=== PATIENT | male | born 1965 | race Caucasian/White ===

== ENCOUNTER 2018-05-07 16:19 | Emergency (ER) | payer MEDICAID ==
[~2018-05-07] VITALS: Ht 182.9 cm; Wt 85.9 kg
[2018-05-07 16:22] VITALS: Ht 182.9 cm; Wt 85.9 kg
[2018-05-07] MEDS ORDERED: DOLOPHINE HCL10 MG PO (16:24)
[2018-05-07] MEDS ORDERED: ZANAFLEX4 MG PO (16:25)
[2018-05-07 16:45] LABS: BASOPHILS 0.2 % (0-2); EOSINOPHILS 1.4 % (0-7); HEMATOCRIT 44.2 % (42.0-54.0); HEMOGLOBIN 15.4 g/dL (13.5-17.5); IMMATURE GRANULOCYTES 0.1 % (0-5); MCH 30.8 pg (26.0-34.0); MCHC 34.8 g/dL (31.0-37.0); MCV 88.4 fL (80.0-100.0); MEAN PLATELET VOLUME 9.8 fL (7.4-10.4); MONOCYTES 6.3 % (2-11); PLATELET COUNT 246 10x3/uL (130-400); RDW 13.7 % (11.5-14.5); WBC 8.4 10x3/uL (4.8-10.8)
[2018-05-07 16:57] LABS: ALBUMIN 3.9 g/dL (3.4-5.0); ALKALINE PHOSPHATASE 95 U/L (46-116); ALT (SGPT) 30 U/L (10-68); BILIRUBIN - TOTAL 0.85 mg/dL (0.2-1.3); CALC OSMOLALITY 270 mosm/kg (275-300); CALCIUM 9.1 mg/dL (8.5-10.1); CARBON DIOXIDE 28.7 mmol/L (21.0-32.0); CHLORIDE - SERUM 100 mmol/L (98-107); GLUCOSE 88 mg/dL (74-106); POTASSIUM - SERUM 4.2 mmol/L (3.5-5.1); SODIUM 136 mmol/L (136-145); UREA NITROGEN 12 mg/dL (7-18); eGFR NON AFRICAN AMERICAN 84 mL/min (90-120)
[2018-05-07 17:01] LABS: AMYLASE - SERUM 43 U/L (25-115); LIPASE 136 U/L (73-393); TROPONIN-I < 0.017 ng/mL (0.000-0.060)
[2018-05-07 17:19] LABS: APPEARANCE CLEAR (CLEAR); BILIRUBIN NEGATIVE (NEGATIVE); COLOR YELLOW (YELLOW); GLUCOSE NEGATIVE (NEGATIVE); KETONE SMALL mg/dL (NEGATIVE); NITRITE NEGATIVE (NEGATIVE); PROTEIN NEGATIVE (NEGATIVE); SPECIFIC GRAVITY 1.015 (1.005-1.020); UROBILINOGEN NORMAL (NORMAL)
[2018-05-07] MEDS ORDERED: NORCO 7.5/325 T1 TA1 PO (18:02)
[2018-05-07] MEDS ORDERED: FLAGYL500 MG PO (18:02)
[2018-05-07 18:28] VITALS: BP 160/85
== END 2018-05-07 18:30 | disposition home or self-care (01) ==
LOC: D.ER 16:19
PROVIDERS: Emergency Medicine
DX: R10.32 Left lower quadrant pain (principal); R10.12 Left upper quadrant pain; R11.10 Vomiting, unspecified; I10 Essential (primary) hypertension

== ENCOUNTER 2018-05-09 05:35 | Observation (INO) | payer MEDICARE ==
[~2018-05-09] VITALS: Ht 182.9 cm; Wt 85.9 kg
--- NOTE | ~2018-05-09 | MORECARE ---
CASE MANAGEMENT DISCHARGE SUMMARY PATIENT: DAMIEN FERNÁNDEZ UNIT: [id number] ADM DATE: 05/09/18 AGE: 52 : 69 SEX: M ROOM/BED: D.2224 AUTHOR: TON,DOC PHYSICIAN: REFERRING PHYSICIAN: BRYN CHO MD DATE OF SERVICE: 05/10/18 Discharge Plan Patient Name: DAMIEN FERNÁNDEZ Facility: [facility]:[place] : 1965 Planned Disposition: Home Anticipated Discharge Date: Discharge Date: Expected LOS: Initial Reviewer: [id number] Initial Review Date: 05/10/2018 Generated: 05/10/18 4:29 pm Comments DCP- Discharge Planning Updated by [id number]: Mary Berger on 05/10/18 2:[address] Patient Name: DAMIEN FERNÁNDEZ Admission Status: ER Accout number: [id number] Admission Date: 05-09-2018 : 1965 Admission Diagnosis: Attending: BRYN CHO Current LOS: 1 Anticipated DC Date: Planned Disposition: Home Primary Insurance: MEDICARE A & B Discharge Planning Comments: CM met with patient to discuss discharge planning, he is alone in the room. States he lives with his and 3 boys (12-19yo). States he is independent with all ADL's and IADL's. States they have just moved her 2 weeks ago from [place] and he does not have a PCP yet. States he does not have any DME or use any outside services in the home. Declines need for DME or home health services. No needs identified. States his will take him home on discharge. CM will continue to follow and assist with discharge planning/needs. National Secretary: Mary Berger DCPIA - Discharge Planning Initial Assessment Updated by [id number]: Mary Berger on 05/10/18 3:26 pm * Is the patient Alert and Oriented? Yes * How many steps to enter\exit or inside your home? 2/0 * PCP Dr. Jeff Cisneros in [place] * Pharmacy [facility] in [facility] * Preadmission Environment Home with Family * ADLs Independent * Equipment None * List name and contact numbers for known caregivers / representatives who currently or will assist patient after discharge: Sabrina whitfield - [phone] * Verbal permission to speak to the caregivers and representatives has been obtained from the patient. Yes * Community resources currently utilized None * Additional services required to return to the preadmission environment? No * Can the patient safely return to the preadmission environment? Yes * Has this patient been hospitalized within the prior 30 days at any hospital? No Patient Name: DAMIEN FERNÁNDEZ Page [phone] at 1530 All edits/amendments must be made on the electronic document DICTATION DATE: 05/10/181528 MANAGER STRATEGY & ACCOUNT: ANIBAL 05/10/181528 RPT#: [id number] DC DATE: STATUS: ADM IN [facility] [address] [place] [address] END OF REPORT
--- NOTE | ~2018-05-09 | MORECARE ---
CASE MANAGEMENT DISCHARGE SUMMARY PATIENT: DAMIEN FERNÁNDEZ UNIT: [id number] ADM DATE: 05/09/18 AGE: 52 : 69 SEX: M ROOM/BED: D.2224 AUTHOR: TONDOC PHYSICIAN: REFERRING PHYSICIAN: BRYN CHO MD DATE OF SERVICE: 05/13/18 Discharge Plan Patient Name: DAMIEN FERNÁNDEZ Facility: [facility]:[place] : 1965 Planned Disposition: Home Anticipated Discharge Date: Discharge Date: 05/11/2018 Expected LOS: 0 Initial Reviewer: [email or web address] Initial Review Date: 05/10/2018 Generated: 05/13/18 5:20 pm Comments DCP- Discharge Planning Updated by [id number]: Mary Berger on 05/11/18 1:[address] Patient Name: DAMIEN FERNÁNDEZ Encounter No: [id number] : 1965 Primary Insurance: MEDICARE A & B Anticipated DC Date: Planned Disposition: Home External Planned Provider: : DCP follow-up note: Patient and family in agreement with discharge plan. His is here to take him home. No changes to plan. Case management will follow and assist as needed. Mary Berger DCP- Discharge Planning Updated by [id number]: Mary Berger on 05/10/18 2:[address] Patient Name: DAMIEN FERNÁNDEZ Admission Status: ER Accout number: [id number] Admission Date: 05-09-2018 : 1965 Admission Diagnosis: Attending: BRYN CHO Current LOS: 1 Anticipated DC Date: Planned Disposition: Home Primary Insurance: MEDICARE A & B Discharge Planning Comments: CM met with patient to discuss discharge planning, he is alone in the room. States he lives with his and 3 boys (12-19yo). States he is independent with all ADL's and IADL's. States they have just moved her 2 weeks ago from [place] and he does not have a PCP yet. States he does not have any DME or use any outside services in the home. Declines need for DME or home health services. No needs identified. States his will take him home on discharge. CM will continue to follow and assist with discharge planning/needs. Shredding Machine Operator: Mary Berger DCPIA - Discharge Planning Initial Assessment Updated by [id number]: Mary Berger on 05/10/18 3:26 pm * Is the patient Alert and Oriented? Yes * How many steps to enter\exit or inside your home? 2/0 * PCP Dr. Jeff Cisneros in [place] * Pharmacy [facility] in [facility] * Preadmission Environment Home with Family * ADLs Independent * Equipment None * List name and contact numbers for known caregivers / representatives who currently or will assist patient after discharge: Sabrina Venegas [facility] - [phone] * Verbal permission to speak to the caregivers and representatives has been obtained from the patient. Yes * Community resources currently utilized None * Additional services required to return to the preadmission environment? No * Can the patient safely return to the preadmission environment? Yes * Has this patient been hospitalized within the prior 30 days at any hospital? No Coverage Notice Reviewer: [id number] - Mary Berger Notice Issued Date-Time: 05/11/2018 8:00 Notice Type: Medicare Outpatient Observation Notice Notice Delivered To: Patient Relationship to Patient: Self Group Supervisor Yard Name: Delivery Method: HAND - Hand Delivered Cydney Days: Prior Verbal Notification: Recipient Understood Notice: Yes Recipient Signature: Yes Med Rec Note Co-signed by Attending: Coverage Notice Comment: IMM EXPLAINED, SIGNED, COPY GIVEN, ORIGNIAL PLACED IN MR. HE WAS LISTED YESTERDAY MEDICAID/NOT MEDICARE. MEDICAID IS HIS SECONDARY Last DP export: 05/11/18 1:41 Patient Name: DAMIEN FERNÁNDEZ Page [phone] at 1621 All edits/amendments must be made on the electronic document DICTATION DATE: 05/13/181619 IT BUSINESS ANALYST: ANIBAL 05/13/181619 RPT#: [id number] DC DATE:05/11/18 STATUS: DIS IN [facility] [address] [place] [address] END OF REPORT
--- NOTE | ~2018-05-09 | MORECARE ---
CASE MANAGEMENT DISCHARGE SUMMARY PATIENT: DAMIEN FERNÁNDEZ UNIT: [id number] ADM DATE: 05/09/18 AGE: 52 : 69 SEX: M ROOM/BED: D.2224 AUTHOR: JAMIE CAMILO PHYSICIAN: REFERRING PHYSICIAN: BRYN CHO MD DATE OF SERVICE: 05/11/18 Discharge Plan Patient Name: DAMIEN FERNÁNDEZ Facility: [facility]:[place] : 1965 Planned Disposition: Home Anticipated Discharge Date: Discharge Date: Expected LOS: Initial Reviewer: [id number] Initial Review Date: 05/10/2018 Generated: 05/11/18 3:40 pm Comments DCP- Discharge Planning Updated by [id number]: Mary Berger on 05/11/18 1:[address] Patient Name: DAMIEN FERNÁNDEZ Encounter No: [id number] : 1965 Primary Insurance: MEDICARE A & B Anticipated DC Date: Planned Disposition: Home External Planned Provider: : DCP follow-up note: Patient and family in agreement with discharge plan. His is here to take him home. No changes to plan. Case management will follow and assist as needed. Mary Berger DCP- Discharge Planning Updated by [email or web address]: Mary Berger on 05/10/18 2:[address] Patient Name: DAMIEN FERNÁNDEZ Admission Status: ER Accout number: [id number] Admission Date: 05-09-2018 : 1965 Admission Diagnosis: Attending: BRYN CHO Current LOS: 1 Anticipated DC Date: Planned Disposition: Home Primary Insurance: MEDICARE A & B Discharge Planning Comments: CM met with patient to discuss discharge planning, he is alone in the room. States he lives with his and 3 boys (12-19yo). States he is independent with all ADL's and IADL's. States they have just moved her 2 weeks ago from [place] and he does not have a PCP yet. States he does not have any DME or use any outside services in the home. Declines need for DME or home health services. No needs identified. States his will take him home on discharge. CM will continue to follow and assist with discharge planning/needs. Fire Services Plumber: Mary Berger DCPIA - Discharge Planning Initial Assessment Updated by [id number]: Mary Berger on 05/10/18 3:26 pm * Is the patient Alert and Oriented? Yes * How many steps to enter\exit or inside your home? 2/0 * PCP Dr. Jeff Cisneros in [place] * Pharmacy [facility] in [facility] * Preadmission Environment Home with Family * ADLs Independent * Equipment None * List name and contact numbers for known caregivers / representatives who currently or will assist patient after discharge: Sabrina whitfield - [phone] * Verbal permission to speak to the caregivers and representatives has been obtained from the patient. Yes * Community resources currently utilized None * Additional services required to return to the preadmission environment? No * Can the patient safely return to the preadmission environment? Yes * Has this patient been hospitalized within the prior 30 days at any hospital? No Coverage Notice Reviewer: [id number] - Mary Berger Notice Issued Date-Time: 05/11/2018 8:00 Notice Type: Medicare Outpatient Observation Notice Notice Delivered To: Patient Relationship to Patient: Self Door Hanger Name: Delivery Method: HAND - Hand Delivered Cydney Days: Prior Verbal Notification: Recipient Understood Notice: Yes Recipient Signature: Yes Med Rec Note Co-signed by Attending: Coverage Notice Comment: IMM EXPLAINED, SIGNED, COPY GIVEN, ORIGNIAL PLACED IN MR. HE WAS LISTED YESTERDAY MEDICAID/NOT MEDICARE. MEDICAID IS HIS SECONDARY Last DP export: 05/10/18 2:30 Patient Name: DAMIEN FERNÁNDEZ Page [phone] at 1441 All edits/amendments must be made on the electronic document DICTATION DATE: 05/11/181439 AIR BRUSH ARTIST: ANIBAL 05/11/18 144 RPT#: [id number] DC DATE: STATUS: ADM IN [facility] [address] [place] [address] END OF REPORT
[~2018-05-09 05:35] MED LIST: DOLOPHINE HCL10 MG PO; FLAGYL500 MG PO; NORCO 7.5/325 T1 TA1 PO; ZANAFLEX4 MG PO
[2018-05-09 06:18] LABS: BASOPHILS 0.3 % (0-2); EOSINOPHILS 2.2 % (0-7); HEMATOCRIT 39.3 % (42.0-54.0); HEMOGLOBIN 13.2 g/dL (13.5-17.5); IMMATURE GRANULOCYTES 0.3 % (0-5); LYMPHOCYTES 27.3 % (15-50); MCH 29.8 pg (26.0-34.0); MCHC 33.6 g/dL (31.0-37.0); MCV 88.7 fL (80.0-100.0); MEAN PLATELET VOLUME 9.9 fL (7.4-10.4); MONOCYTES 8.5 % (2-11); NEUTROPHILS 61.4 % (40-80); PLATELET COUNT 220 10x3/uL (130-400); RBC 4.43 10x6/uL (4.20-6.10); RDW 13.8 % (11.5-14.5); WBC 8.7 10x3/uL (4.8-10.8)
[2018-05-09 06:32] LABS: ALBUMIN 3.4 g/dL (3.4-5.0); ALKALINE PHOSPHATASE 82 U/L (46-116); ALT (SGPT) 23 U/L (10-68); BILIRUBIN - TOTAL 0.38 mg/dL (0.2-1.3); CALC OSMOLALITY 268 mosm/kg (275-300); CALCIUM 8.1 mg/dL (8.5-10.1); CARBON DIOXIDE 26.8 mmol/L (21.0-32.0); CHLORIDE - SERUM 102 mmol/L (98-107); GLUCOSE 71 mg/dL (74-106); PROTEIN - SERUM 7.1 g/dL (6.4-8.2); SODIUM 136 mmol/L (136-145); UREA NITROGEN 9 mg/dL (7-18); eGFR NON AFRICAN AMERICAN 84 mL/min (90-120)
[2018-05-09 06:43] LABS: AMYLASE - SERUM 35 U/L (25-115); CKMB 1.7 U/L (0.0-3.6); CREATINE KINASE 154 UL (21-232); LIPASE 138 U/L (73-393); TROPONIN-I < 0.017 ng/mL (0.000-0.060)
[2018-05-09 08:28] LABS: APPEARANCE CLEAR (CLEAR); COLOR YELLOW (YELLOW)
[2018-05-09 08:29] LABS: BILIRUBIN NEGATIVE (NEGATIVE); GLUCOSE NEGATIVE (NEGATIVE); KETONE NEGATIVE (NEGATIVE); NITRITE NEGATIVE (NEGATIVE); PROTEIN NEGATIVE (NEGATIVE); UROBILINOGEN NORMAL (NORMAL)
[2018-05-09 12:00] VITALS: BP 157/81; BMI 25.7
[2018-05-09 18:41] VITALS: BP 165/88
[2018-05-09 20:00] VITALS: BP 146/86
[2018-05-10 04:49] LABS: BASOPHILS 0.3 % (0-2); EOSINOPHILS 2.8 % (0-7); HEMATOCRIT 39.1 % (42.0-54.0); HEMOGLOBIN 13.2 g/dL (13.5-17.5); LYMPHOCYTES 30.3 % (15-50); MCH 30.2 pg (26.0-34.0); MCHC 33.8 g/dL (31.0-37.0); MCV 89.5 fL (80.0-100.0); MEAN PLATELET VOLUME 10.4 fL (7.4-10.4); NEUTROPHILS 55.6 % (40-80); PLATELET COUNT 215 10x3/uL (130-400); RBC 4.37 10x6/uL (4.20-6.10); RDW 13.7 % (11.5-14.5)
[2018-05-10 05:10] LABS: CALC OSMOLALITY 274 mosm/kg (275-300); CALCIUM 8.2 mg/dL (8.5-10.1); CARBON DIOXIDE 29.8 mmol/L (21.0-32.0); CHLORIDE - SERUM 105 mmol/L (98-107); CREATININE - SERUM 0.9 mg/dL (0.6-1.3); GLUCOSE 85 mg/dL (74-106); POTASSIUM - SERUM 3.9 mmol/L (3.5-5.1); SODIUM 139 mmol/L (136-145); eGFR NON AFRICAN AMERICAN > 90 mL/min (90-120)
[2018-05-10 05:24] LABS: UREA NITROGEN 6 mg/dL (7-18)
[2018-05-10 07:21] VITALS: BP 139/79
[2018-05-10 08:43] VITALS: BP 152/86
[2018-05-10 10:07] VITALS: Ht 182.9 cm; Wt 85.9 kg
[2018-05-10 17:16] VITALS: BP 191/101
[2018-05-10 22:17] VITALS: BP 173/98
[2018-05-11 01:08] VITALS: BP 169/95
[2018-05-11 05:08] VITALS: BP 146/84
[2018-05-11 06:29] LABS: BASOPHILS 0.3 % (0-2); EOSINOPHILS 2.8 % (0-7); HEMATOCRIT 39.4 % (42.0-54.0); HEMOGLOBIN 13.2 g/dL (13.5-17.5); IMMATURE GRANULOCYTES 0.2 % (0-5); LYMPHOCYTES 28.3 % (15-50); MCH 30.3 pg (26.0-34.0); MCHC 33.5 g/dL (31.0-37.0); MCV 90.6 fL (80.0-100.0); MEAN PLATELET VOLUME 10.5 fL (7.4-10.4); MONOCYTES 9.4 % (2-11); PLATELET COUNT 239 10x3/uL (130-400); RBC 4.35 10x6/uL (4.20-6.10); RDW 13.7 % (11.5-14.5); WBC 6.4 10x3/uL (4.8-10.8)
[2018-05-11 06:37] LABS: CALC OSMOLALITY 274 mosm/kg (275-300); CALCIUM 8.4 mg/dL (8.5-10.1); CARBON DIOXIDE 31.9 mmol/L (21.0-32.0); CHLORIDE - SERUM 104 mmol/L (98-107); CREATININE - SERUM 0.9 mg/dL (0.6-1.3); GLUCOSE 87 mg/dL (74-106); SODIUM 140 mmol/L (136-145); eGFR NON AFRICAN AMERICAN > 90 mL/min (90-120)
[2018-05-11 06:44] LABS: UREA NITROGEN 4 mg/dL (7-18)
[2018-05-11 08:27] VITALS: BP 146/89
== END 2018-05-11 15:02 | disposition home or self-care (01) ==
LOC: D.ER 05:35 → D.EDHOLD 08:59 → D.MS 08:59 → OBSVTIME 09:00 → D.MS 09:26
PROVIDERS: Family Medicine; Internal Medicine Nephrology
DX: K44.9 Diaphragmatic hernia without obstruction or gangrene (principal); K40.90 Unilateral inguinal hernia, without obstruction or gangrene, not specified as recurrent; I10 Essential (primary) hypertension; K21.9 Gastro-esophageal reflux disease without esophagitis

== ENCOUNTER 2019-12-09 12:13 | Inpatient (IN) | payer MEDICARE ==
[~2019-12-09] VITALS: Ht 182.9 cm; Wt 88.7 kg
[2019-12-09] VITALS (9 sets, daily range): BP systolic 112–143; BP diastolic 62–94; Ht 182.9 cm; Wt 88.7 kg
--- NOTE | ~2019-12-09 | EC ---
PATIENT:DAMIEN FERNÁNDEZ DATE OF SERVICE: 12/09/19 SEX: M MEDICAL RECORD: [id number] DATE OF : [birth year] LOCATION[facility] AGE OF PATIENT: 54 ADMISSION DATE: 12/09/19 REFERRING PHYSICIAN: INTERPRETING PHYSICIAN: JAY ERNST MD ECHOCARDIOGRAM REPORT ECHO CHARGES 4 ECHO COMPLETE Date: 12/10/19 CLINICAL DIAGNOSIS: PERICARDIAL EFFUSION ECHOCARDIOGRAPHIC MEASUREMENTS (adult normal given) AC root (d.<3.7cm) 3.3 cm LV Septum d (<1.2 cm> 1.0 cm Valve Excursion 2.2 cm LV Septum (systole) 1.5 cm Left Atria (s.<4.0cm> 4.0 cm LVPW d(<1.2cm) 1.1 cm RV (d.<2.3cm) 2.6 cm LVPW (sytole) 1.7 cm LV diastole(<5.6CM) 5.0 cm MV E-F(>70mm/sec) cm LV systole 3.0 cm LVOT Diameter 2.4 cm MV exc.(>10mm) cm Est.ejection fraction (50-75%) % DOPPLER: LVIT cm/sec A 113 cm/sec E 53.0 cm/sec LA cm/sec RVSP 31.2 mmHg LVOT 112 cm/sec AOP1/2T m/s Asc. Ao 166 cm/sec RVOT 74.0 cm/sec RA cm/sec PA 108 cm/sec AV Gradient Peak 11.0 mmHg AV Mean 5.7 mmHg AV Area 2.7 cm MV Gradient Peak 6.2 mmHg MV Mean 2.4 mmHg MV Area cm COMMENTS: Coil Shaper: Jannet RUSTOE Window Dresser: Jay Ernst TAPE# PACS Pericardial Effusion Y DATE OF SERVICE: 12/10/2019 PROCEDURE: Transthoracic echocardiogram. FINDINGS: 1. Left ventricle shows hyperdynamic function, ejection fraction of 65% to 70%. There is mild left ventricular hypertrophy. There is diastolic dysfunction. 2. Left atrium is mildly dilated. 3. Aortic valve: Normal structure and function, trileaflet structure. 4. The mitral valve has mild mitral regurgitation with normal structure and ECHOCARDIOGRAM REPORT [id number] DAMIEN FERNÁNDEZ function. 5. Tricuspid valve is normal in structure and function with mild tricuspid regurgitation. RVSP appears to be normal. 6. Right ventricle is normal size, shape, structure, and function. 7. Right atrium is normal size, shape, structure, and function. 8. Pulmonic valve is normal. TRANSINT:[id number] Voice Confirmation ID: [id number] DOCUMENT ID: [id number] JAY ERNST MD CC: [id number] DICTATION DATE: 12/11/19726 MOVIE PROJECTIONIST: 12/11/19 175 DIS IN 12/10/19 [facility] [address] [place] [address]
[2019-12-09 12:52] LABS: BASOPHILS 0.3 % (0-2); EOSINOPHILS 0.8 % (0-7); HEMATOCRIT 29.6 % (42.0-54.0); HEMOGLOBIN 9.3 g/dL (13.5-17.5); IMMATURE GRANULOCYTES 0.5 % (0-5); LYMPHOCYTES 16.6 % (15-50); MCH 28.5 pg (26.0-34.0); MCHC 31.4 g/dL (31.0-37.0); MCV 90.8 fL (80.0-100.0); MEAN PLATELET VOLUME 9.5 fL (7.4-10.4); MONOCYTES 5.5 % (2-11); NEUTROPHILS 76.3 % (40-80); PLATELET COUNT 250 10x3/uL (130-400); RBC 3.26 10x6/uL (4.20-6.10); RDW 16.5 % (11.5-14.5); WBC 11.1 10x3/uL (4.8-10.8)
[2019-12-09 13:05] LABS: APTT 25.2 SECONDS (22.8-39.4); INR 1.01 (0.85-1.17); PROTIME 13.3 SECONDS (11.6-15.0)
[2019-12-09 13:07] LABS: CALC OSMOLALITY 285 mosm/kg (275-300); CALCIUM 7.4 mg/dL (8.5-10.1); CARBON DIOXIDE 25.9 mmol/L (21.0-32.0); CHLORIDE - SERUM 107 mmol/L (98-107); POTASSIUM - SERUM 3.7 mmol/L (3.5-5.1); SODIUM 141 mmol/L (136-145); UREA NITROGEN 21 mg/dL (7-18); eGFR NON AFRICAN AMERICAN 83 mL/min (90-120)
[2019-12-09 13:12] LABS: ALBUMIN 2.7 g/dL (3.4-5.0); ALKALINE PHOSPHATASE 84 U/L (30-120); ALT (SGPT) 20 U/L (10-68); BILIRUBIN - TOTAL 0.47 mg/dL (0.2-1.3); PRO BNP 44 pg/mL (0-125); PROTEIN - SERUM 5.8 g/dL (6.4-8.2); TROPONIN-I < 0.017 ng/mL (0.000-0.060)
[2019-12-09 13:14] LABS: GLUCOSE 139 mg/dL (74-106)
[2019-12-09 14:18] LABS: BACTERIA FEW /hpf (NEGATIVE); BILIRUBIN NEGATIVE (NEGATIVE); GLUCOSE NEGATIVE (NEGATIVE); KETONE SMALL mg/dL (NEGATIVE); NITRITE NEGATIVE (NEGATIVE); RED CELLS - URINE 0-5 /hpf (0-5); UROBILINOGEN NORMAL (NORMAL); WHITE CELLS - URINE 0-5 /hpf (NEGATIVE)
[2019-12-09] MEDS ORDERED: LISINOPRIL40 MG PO (16:02)
--- NOTE | 2019-12-09 16:02 | NUR ---
1530 PT REPORT RECIEVED FROM THE ED,.. PT ARRIVED IN ICU VIA BED .. ADMISSION ASSESMENT DONE SEE FLOW SHEET FOR FINDIONGS.. ICE BAG IS PLACED ON PATIENTS RIGHT FOOT FOR SWELLING AND C/O PAIN... PT STATES THAT HE HAS A HISTORY OF BACK PAIN.. PT ARRIVED WITH A CELL PHONE ..
[2019-12-09 17:06] LABS: HEMATOCRIT 23.1 % (42.0-54.0); HEMOGLOBIN 7.2 g/dL (13.5-17.5)
--- NOTE | 2019-12-09 18:34 | NUR ---
1600 SPOKE WITH PATIENTS SON AND GIRL UPDATE GIVEN PER PATIENT OK AND PASS CODE GIVEN... 1630 PATIENT SUDDENLY STARTED YELLING OUT ITS HAPPENEING AGAIN and STARTED HAVING A SEIZURE THAT LASTED 30-45 SECONDS WHEREBY HE BECAME APNIC AND BRADYCARDIC A CODE BLUE WAS CALLED AND WITHOUT LIFESAVING MEDS GIVEN PATIENT RALLIED AND BECAME POST DICTAL AFTER BECOMING BELIGERANT FIRST.. DR ALMONTE CALLED...
--- NOTE | 2019-12-09 18:55 | NUR ---
164 [address] WILLIAMSON FOR POSSIBLE CARDIAC INVOLVEMENT IN SEIZURE ACTIVITY.. KEPRA WAS ORDERED BY DR LIU IN THE CODE 1500MG AND 2 MG OF ATIVAN THIS WAS INITIATED..2ND SEIZURE LIKE ACTIVITY WITH SAME SYMPTOMS 1700 DR WILLIAMSON HERE AND SPOKE WITH PATIENT.. DISCOVERY IN INTERVIEW WITH THAT PATIENT WAS DCd FROM [facility] YESTERDAY AND DRANK 6 BEERS LAST NITE AND HE HAD BEEN ON METHADONE FOR 8 YEARS AND WEANED HIMSELF OFF AND TOOK THE LAST DOSE 6 WEEKS AGO... HE ALSO HAS WEANED HIMSELF OFF OF MOST OF HIS OTHER HOME MEDS.. 1730 DR ALMONTE CALLED BACK AND ORDERS RECIEVED FOR UDS BANANA BAG LIBRIUM SCHEDULED AND HAND H Q4.. DR DELGADO CALLED AND INFORMED OF PATIENTS ISSUES.. PRBC ORDERED.. 1800 PRBC INFUSING.. PT IS SLEEPING AND EASILY ROUSED.. 1830 CLEAN LINENS TO BED KEPRA THRU INFUSING.. PT INCONTINENT OF URINE DURING SEIZURES.. PRBC CONTINUE TO INFUSE
--- NOTE | 2019-12-09 21:05 | NUR ---
1914-ASSESSMENT COMPLETED. LAYING IN BED WITH EYES CLOSED, EASILY WAKES. A/O X 4. REQUESTING ICE CHIPS. BREATHING ROOM AIR. INDEPENDENT WITH REPOSITIONING. 1945- FIRST UNIT PRBC COMPLETED. 1956- SECOND UNIT OF PRBC STARTED. 2099- EYES CLOSED, EASILY WAKES. DENIES ANY NEEDS. INDEPENDENT WITH REPOSITIONING.
[2019-12-10] VITALS (13 sets, daily range): BP systolic 97–137; BP diastolic 57–107
--- NOTE | 2019-12-10 01:54 | NUR ---
2229- PATIENT C/O SEVERE CHRONIC BACK PAIN AND RIGHT FOOT PAIN. INFORMED PATIENT THAT THERE WASN'T ANY PAIN MEDICINE ORDERS BUT THIS NURSE CAN CALL MD. PATIENT STATED "YOU BETTER GET ME SOMETHING FOR PAIN OR YOU'RE NOT GOING TO LIKE ME VERY MUCH." CALLED AND SPOKE WITH ROMEO CORTES APRN WITH DR. EASTMAN. NEW ORDERS RC'D. 9- DR. DELGADO CALLED TO GET UPDATED ON PATIENT. UPDATE GIVEN. 0045- 3 UNITS AND PRBC COMPLETELY DONE. 0146- DR. EASTMAN CALLED FOR UPDATE ON PATIENT. UPDATE GIVEN. 0200- LAB HERE TO GET LAB FOR H&H, PATIENT STARTED CUSSING AT GUT CLEANER.
[2019-12-10 01:55] LABS: HEMATOCRIT 28.6 % (42.0-54.0); HEMOGLOBIN 9.1 g/dL (13.5-17.5)
--- NOTE | 2019-12-10 02:43 | NUR ---
COLLECTED CLEAN CATCH URINE FOR LAB. PATIENT HAD A LARGE, BRIGHT RED BM. CALLED ANSWERING SERVICE FOR DR. DELGADO TO BE PAGED AT THIS TIME CONCERNING BLEEDING AND H&H
[2019-12-10 03:09] LABS: UDS - AMPHET NEGATIVE QUAL (NEGATIVE); UDS - BARB NEGATIVE QUAL (NEGATIVE); UDS - BENZO NEGATIVE QUAL (NEGATIVE); UDS - COCAINE NEGATIVE QUAL (NEGATIVE); UDS - OPIATE POSITIVE QUAL (NEGATIVE); UDS - PCP NEGATIVE QUAL (NEGATIVE); UDS - THC NEGATIVE QUAL (NEGATIVE)
--- NOTE | 2019-12-10 05:00 | NUR ---
EYES CLOSED, EASILY WAKES TO VOICE. NO OTHER BLEEDING NOTED.
--- NOTE | 2019-12-10 06:15 | NUR ---
DR. EASTMAN CALLED, UPDATE GIVEN.
[2019-12-10 06:28] LABS: HEMATOCRIT 28.9 % (42.0-54.0); HEMOGLOBIN 9.4 g/dL (13.5-17.5); LYMPHOCYTES 24.2 % (15-50); MCHC 32.5 g/dL (31.0-37.0); MCV 89.2 fL (80.0-100.0); MEAN PLATELET VOLUME 9.8 fL (7.4-10.4); NEUTROPHILS 68.4 % (40-80); PLATELET COUNT 181 10x3/uL (130-400); RBC 3.24 10x6/uL (4.20-6.10); RDW 15.6 % (11.5-14.5); WBC 10.9 10x3/uL (4.8-10.8)
[2019-12-10 06:39] LABS: ALBUMIN 2.3 g/dL (3.4-5.0); ALKALINE PHOSPHATASE 57 U/L (30-120); ALT (SGPT) 17 U/L (10-68); CALCIUM 7.1 mg/dL (8.5-10.1); CARBON DIOXIDE 26.3 mmol/L (21.0-32.0); CHLORIDE - SERUM 110 mmol/L (98-107); CREATININE - SERUM 0.8 mg/dL (0.6-1.3); MAGNESIUM - SERUM 2.5 mg/dL (1.8-2.4); PROTEIN - SERUM 4.8 g/dL (6.4-8.2); SODIUM 141 mmol/L (136-145); eGFR NON AFRICAN AMERICAN > 90 mL/min (90-120)
[2019-12-10 06:40] LABS: CALC OSMOLALITY 286 mosm/kg (275-300); GLUCOSE 90 mg/dL (74-106); UREA NITROGEN 29 mg/dL (7-18)
--- NOTE | 2019-12-10 07:53 | NUR ---
0700 REPORT RECIEVED AND CARE ASSUMED OF PATIENT.. SEE FLOW SHEET FOR SHHIFT ASSESMENT FINDINGS...PT IS SLEEPING AT THIS TIME EASILY ROUSED BUT GOES BACK TO SLEEP.. WITHOUT C/O AT THIS TIME..
--- NOTE | 2019-12-10 08:34 | NUR ---
0830 PT IS SLEEPING .. NOT AWAKENED FOR MEDS AT THIS TIME..
--- NOTE | 2019-12-10 09:10 | NUR ---
0900 PT IS AWAKE.. MEDS GIVEN PT C/O BACK PAIN TYLENOL REFUSED BY PATIENT STATING THAT HE WASNT TAKING THAT IT WONT CONTROL HIS PAIN .. EXPLAINED THAT WHEN THE COMES IN HE CAN TALK TO HIM ABOUT MEDS...
--- NOTE | 2019-12-10 09:38 | NUR ---
5691 DR CAPELLAN IN TO SEE PATIENT.. SITTING AT BEDSIDE TALKING WITH HIM AT THIS TIME...
--- NOTE | 2019-12-10 09:55 | NUR ---
5775 DR DELGADO IN TO SEE PATIENT.. DR DIMAS GONE FROM ROOM
--- NOTE | 2019-12-10 10:11 | NUR ---
1010 DR WILLIAMSON IN TO SEE PATIENT.. NO NEW ORDERS
--- NOTE | 2019-12-10 10:21 | NUR ---
1020 LAB IN DRAWING BLOOD.. DR DIMAS IN TO TELL PATIENT THAT HE HAS ORDERED METHADONE FOR PATIENTS BACK PAIN CONTROL... PT BECAME VERBALLY VIOLENT WITH STATING THAT HE WOULDNT TAKE THEM AND THAT HE DOESNT SELL THEM ( THE METHADONE) DR. DIMAS HAD MADE NO COMMENT OR SUGGESTION THAT PATIENT SOLD MEDICATION.
--- NOTE | 2019-12-10 12:03 | NUR ---
1130 PATIENT OVERHERARD FROM NURSES DESK TALKING ON PHONE THAT HE WANTS TO BE MOVED TO ANOTHER FACILITY.. 1150 CALLED HAS PASS CODE UPDATE GIVEN.. 1200 ECHO IN PROGRESS AT THE BEDSIDE PER ORDER.. 1205 SON PREMA CALLED HAS PASSCODE.. UPDATE GIVEN SON STATES THAT PATIENT WANTS TO BE MOVED TO [facility] EXPLAINED TRANSFER PROCEDURE TO HIM, HE REQUESTED THAT I INFORM PATIENT OF THE PROCEDURE FOR TRANSFER..
--- NOTE | 2019-12-10 12:35 | NUR ---
1230 SPOKE WITH WALLY CORTES FOR POSSIBLE DISCHARGE /AMA ASSISTANT MANAGER AIRSIDE OPERATIONS STATES THAT PT IS STILL TOO UNSTABLE TO BE DISCHARGED AND IF PATIENT WANTS TO GO AMA HE IS FREE TO GO H AND H IS STABLE AT THIS TIME.. PATIENT INFORMED AND SIGNED AMA PAPERS. EXPLAINED TO PATIENT THAT HE WOULD HAVE TO AMBULATE HIMSELF TO LEAVE HE IS CALLING HIS BROTHER TO COME PICK HIM UP.. 1242 WHEN PATIENT ASKED WHEN BROTHER IS COMING HE SAID TO TAKE EVERYTHING OFF OF HIM HES LEAVING HIS CAR IS IN THE LOT AND HE WILL DRIVE HIMSELF
--- NOTE | 2019-12-10 12:56 | NUR ---
3101 SON CALLED ND INFORMED OF PATIENTS SAYING HE PLANNED TO DRIVE SELF SON STATES THE PATIENTS BROTHER WOULD BE HERE TO GET HIM AND TAKE HIM TO [facility] IN [place] IN ABOUT AN HOUR..
--- NOTE | 2019-12-10 13:11 | NUR ---
PATIENT DRESSED SELF AND PIV REMOVED AMA PAPERSIGNED AND PT WALKED HIMSELF TO HOSPITAL ED ENTRANCE AND OUT THE DOOR..STATING THAT HIS BROTHER WOULD BE OUTSIDE WAITING ON HIM....
== END 2019-12-10 13:30 | disposition left against medical advice (07) | DRG 312 ==
LOC: D.ER 12:13 → D.ICU 14:20
PROVIDERS: Emergency Medicine; ADMIT Family Medicine Adult Medicine; ATTEND Family Medicine Adult Medicine
DX: R55 Syncope and collapse (principal); K92.2 Gastrointestinal hemorrhage, unspecified; D64.9 Anemia, unspecified; K21.9 Gastro-esophageal reflux disease without esophagitis; G89.29 Other chronic pain; I10 Essential (primary) hypertension; G40.909 Epilepsy, unspecified, not intractable, without status epilepticus